=== PATIENT | male | born 1980 | race Caucasian/White ===

== ENCOUNTER 2019-07-15 13:53 | Emergency (ER) | payer OTHER ==
[2019-07-15] MEDS ORDERED: Diphtheria,Pertussis(Acell),Tetanus Vaccine 0.5 ML Syringe IM ONE (14:15)
[2019-07-15] MEDS ORDERED: Bacitracin Oint 1 GM U/D Packet TOP ONE (14:16)
--- NOTE | 2019-07-15 14:21 | EDM.PDOC ---
ED HPI GENERAL MEDICAL PROBLEM - General Chief Complaint: Upper Extremity Injury/Pain Stated Complaint: RIGHT HAND LACERATION Time Seen by Provider: 07/15/19 14:10 - History of Present Illness INITIAL COMMENTS - FREE TEXT/NARRATIVE: HISTORY AND PHYSICAL: History of present illness: The patient is a healthy 30-year-old male who is unsure of his last tetanus shot and presents with complaints of injury to right hand that occurred at work when a rolling machine piece of equipment moved over his hand impacting the dorsal aspect of his hand on the right side in a rolling shearing like motion. There was no direct blow to the area and initially the patient had pain but since then he has not had any pain. There is swelling to the dorsal aspect of her his hand on the right and there is a wound but he is able to move his fingers and has no discrete discomfort in the hand or digits. There is no proximal wrist forearm elbow or shoulder pain and otherwise the patient was having a normal day without systemic issues when this occurred. Review of systems: As per history of present illness and below otherwise all systems reviewed and negative. Past medical history: As per history of present illness and as reviewed below otherwise noncontributory. Surgical history: As per history of present illness and as reviewed below otherwise noncontributory. Social history: No reported history of drug or alcohol abuse. Family history: As per history of present illness and as reviewed below otherwise noncontributory. Physical exam: General: :Well developed well-nourished man who is nontoxic and vital signs were noted by me HEENT: Atraumatic, normocephalic, negative for conjunctival pallor or scleral icterus, mucous membranes moist, throat clear, neck supple, nontender, trachea midline. Lungs: Clear to auscultation, breath sounds equal bilaterally, chest nontender. Heart: S1S2, regular rate and rhythm no overt murmurs Abdomen: Soft, nondistended, nontender. NABS Pelvis: Deferred Genitourinary: Deferred. Rectal: Deferred. Extremities: Atraumatic, and full range of motion of all extremities including the right hand where the injury is located. On the dorsal aspect of the right hand at the third MCP there is a mounded area of soft tissue swelling which is nontender and nonfluctuant and there are superficial abrasions on the surface of the skin in this region. There are no palpable bony deformities or discrete tenderness and the patient can range of motion all of the digits including flexion and extension. There are no other injuries to the hand or digits and no proximal wrist forearm elbow or shoulder pain defects or deformities.. Neurovascular unremarkable. Neuro: Awake, alert, oriented. Cranial nerves II through XII unremarkable. Cerebellum unremarkable. Motor and sensory unremarkable throughout. Exam nonfocal. Diagnostics: X-ray right hand Therapeutics: Tdap, local wound care and bacitracin sling, patient says he is not having pain so pain meds were declined Impression: Right hand injury Definitive disposition and diagnosis as appropriate pending reevaluation and review of above. - Related Data Allergies Allergy/AdvReac Type Severity Reaction Status Date / Time No Known Allergies Allergy Verified 07/15/19 14:11 Home Meds: Home Meds . [No Known Home Meds] 07/15/19 [History] Past Medical History - Past Health History Medical/Surgical History: Denies Medical/Surgical History - Infectious Disease History Infectious Disease History: Reports: Chicken Pox, Measles, Mumps Social & Family History - Family History Family Medical History: Noncontributory - Tobacco Use Smoking Status *Q: Current Every Day Smoker Years of Tobacco use: 20 Packs/Tins Daily: 0.5 - Recreational Drug Use Recreational Drug Use: No Review of Systems - Review of Systems Review Of Systems: ROS reveals no pertinent complaints other than HPI. ED EXAM, GENERAL - Physical Exam Exam: See Below (See dictation) Course - Vital Signs Last Recorded V/S: Last Vital Signs Temp 36.6 C 07/15/19 14:08 Pulse 99 07/15/19 14:08 Resp 18 07/15/19 14:08 BP 127/83 07/15/19 14:08 Pulse Ox 95 07/15/19 14:08 - Orders/Labs/Meds Orders: Active Orders 24 hr Category Date Time Status Communication Order [RC] STAT Care 07/15/19 14:15 Active Vaccines to be Administered [RC] PER UNIT ROUTINE Care 07/15/19 14:16 Active Meds: Medications Discontinued Medications Generic Name Dose Route Start Last Admin Trade Name Freq PRN Reason Stop Dose Admin Bacitracin 1 dose 07/15/19 14:16 07/15/19 15:12 Bacitracin Oint 1 Gm TOP 07/15/19 14:17 1 dose ONETIME ONE Administration Diphtheria/Tetanus/Acell Pertussis 0.5 ml 07/15/19 14:15 07/15/19 14:30 Adacel IM 07/15/19 14:16 0.5 ml .ONCE ONE Administration Departure - Departure Time of Disposition: 15:18 Disposition: Home, Self-Care 01 Condition: Good Clinical Impression: Injury of right hand Qualifiers: Encounter type: initial encounter Qualified Code(s): S69.91XA - Unspecified injury of right wrist, hand and finger(s), initial encounter - Discharge Information Referrals: PCP,None [Primary Care Provider] - Forms: ED Department Discharge Additional Instructions: The following information is given to patients seen in the emergency department who are being discharged to home. This information is to outline your options for follow-up care. We provide all patients seen in our emergency department with a follow-up referral. The need for follow-up, as well as the timing and circumstances, are variable depending upon the specifics of your emergency department visit. If you don't have a primary care physician on staff, we will provide you with a referral. We always advise you to contact your personal physician following an emergency department visit to inform them of the circumstance of the visit and for follow-up with them and/or the need for any referrals to a consulting specialist. The emergency department will also refer you to a specialist when appropriate. This referral assures that you have the opportunity for followup care with a specialist. All of these measure are taken in an effort to provide you with optimal care, which includes your followup. Under all circumstances we always encourage you to contact your private physician who remains a resource for coordinating your care. When calling for followup care, please make the office aware that this follow-up is from your recent emergency room visit. If for any reason you are refused follow-up, please contact the [facility] emergency department at and ask to speak to the emergency department charge nurse. Dr. Rolando Branham [facility] [address] [place] [id number] @ Dr Milton & Dr Vargas [facility] [address] [place] [address] @ Dr Mack [facility] [address] [address] Ice to area of swelling and keep the abrasions clean and dry with mild soap and water pat dry and apply bacitracin or Neosporin. Please do not apply Band-Aids as these trap moisture and if you must cover the area please use gauze or breathable dressing. Please follow-up with one of our hand specialists for continued pain and further care and reevaluation using resources given to above and as you choose. Return to ER as needed and as discussed. Use over-the- counter meds for pain management as needed. - My Orders Last 24 Hours: My Active Orders 07/15/19 14:15 Communication Order [RC] STAT 07/15/19 14:16 Vaccines to be Administered [RC] PER UNIT ROUTINE - Assessment/Plan Last 24 Hours: My Active Orders 07/15/19 14:15 Communication Order [RC] STAT 07/15/19 14:16 Vaccines to be Administered [RC] PER UNIT ROUTINE
--- NOTE | 2019-07-15 15:02 | CR ---
INDICATION: Trauma. TECHNIQUE: Three views right hand and wrist. FINDINGS: Moderate to marked focal soft tissue swelling dorsal aspect right hand. No acute fracture or dislocation in the visualized right hand or wrist. Small rounded lucency in the right 3rd metacarpal head should be benign. Remainder negative. Dictated by Richard Spivey MD @ Jul 15 2019 3:00PM Signed by Dr. Richard Spivey @ Jul 15 2019 3:01PM
== END 2019-07-15 15:30 | disposition home or self-care (01) ==
LOC: MW.ED 13:53
DX: S69.91XA Unspecified injury of right wrist, hand and finger(s), initial encounter (principal); F17.210 Nicotine dependence, cigarettes, uncomplicated; Z23 Encounter for immunization; W31.89XA Contact with other specified machinery, initial encounter; Y92.89 Other specified places as the place of occurrence of the external cause; Y99.0 Civilian activity done for income or pay
CPT/HCPCS: 73130-26-RT; 73130-RT; 90471; 90715; 99283; 99283-25